=== PATIENT | male | born 1945 | race Two or more races ===

== ENCOUNTER 2024-08-20 12:16 | Inpatient (IN) | payer OTHER ==
[~2024-08-20] VITALS: Ht 170.2 cm; Wt 56.6 kg
--- NOTE | 2024-08-20 12:33 | ED.PDOC ---
History of Present Illness HPI Comments 79-year-old male brought in by EMS presents with a chief complaint of generalized weakness x 2 weeks. Patient was at the [facility] and staff called 911 when they noticed patient had a temperature of 100F and was hypotensive at 100 systolic. Patient has a history of being septic which is why staff called 911. Patient arrives stating that he has no complaints or pain at this time. Patient was given 500mL bolus by EMS and is now at 147/60. Blood sugar was 200 per EMS. No other symptoms or modifying factors present at this time. Chief Complaint: General Weakness Time Seen by MD: 12:18 Reviewed Notes: Medications, Allergies Allergies: Coded Allergies: Lisinopril (Verified Allergy, Unknown, 08/20/24) Information Source: Patient Mode of Arrival: Ambulatory Severity: Moderate Timing: Weeks Duration: Since onset Prehospital treatment: None Past Medical History PAST MEDICAL HISTORY: CVA, DM, HTN Surgical History: Denies all surgeries Family History Family History: Reviewed,noncontributory to illness Social History Smoker: Non-Smoker Alcohol: Denies ETOH Use Drugs: Denies Drug Use Lives In: Home Constitutional: reports: weakness; denies: chills, diaphoresis, fatigue, fever, malaise, sweats, others EENTM: denies: blurred vision, double vision, ear bleeding, ear discharge, ear drainage, ear pain, ear ringing, eye pain, eye redness, hearing loss, mouth pain, mouth swelling, nasal discharge, nose bleeding, nose congestion, nose pain, photophobia, tearing, throat pain, throat swelling, voice changes, others Respiratory: denies: cough, hemoptysis, orthopnea, SOB at rest, shortness of breath, SOB with excertion, stridor, wheezing, others Cardiovascular: denies: chest pain, dizzy spells, diaphoresis, Dyspnea on exertion, edema, irregular heart beat, left arm pain, lightheadedness, palpitations, PND, syncope, others Gastrointestinal: denies: abdomen distended, abdominal pain, blood streaked bowels, constipated, diarrhea, dysphagia, difficulty swallowing, hematemesis, melena, nausea, poor appetite, poor fluid intake, rectal bleeding, rectal pain, vomiting, others Genitourinary: denies: burning, dysuria, flank pain, frequency, hematuria, incontinence, penile discharge, penile sore, pain, testicle pain, testicle swelling, urgency, others Neurological: denies: dizziness, fainting, headache, left sided numbness, left sided weakness, numbness, paresthesia, pre-existing deficit, right sided numbness, right sided weakness, seizure, speech problems, tingling, tremors, weakness, others Musculoskeletal: denies: back pain, gout, joint pain, joint swelling, muscle pain, muscle stiffness, neck pain, others Integumetry: denies: bruises, change in color, change in hair/nails, dryness, laceration, lesions, lumps, rash, wounds, others Allergic/Immunocompromised: denies: Difficulty Healing, Frequent Infections, Hives, Itching, others Hematologic/Lymphatic: denies: anemia, blood clots, easy bleeding, easy bruising, swollen glands, others Endocrine: denies: excessive hunger, excessive sweating, excessive thirst, excessive urination, flushing, intolerance to cold, intolerance to heat, unexplained weight gain, unexplained weight loss, others Psychiatric: denies: anxiety, bipolar disorder, depression, hopeless, panic disorder, schizophrenia, sleepless, suicidal, others All Other Systems: Reviewed and Negative Physical Exam General Appearance: Moderate Distress, Normal HEENT: Normal ENT Inspection, Pharynx Normal, TMs Normal Neck: Full Range of Motion, Non-Tender, Normal, Normal Inspection Respiratory: Chest Non-Tender, Lungs Clear, No Accessory Muscle Use, No Respiratory Distress, Normal Breath Sounds Cardiovascular: No Edema, No JVD, No Murmur, No Gallop, Normal Peripheral Pulses, Regular Rate/Rhythm Breast Exam: Deferred Gastrointestinal: No Organomegaly, No Pulsatile Mass, Normal Bowel Sounds, Soft, Other (G-tube in place) Genitalia: Deferred Pelvic: Deferred Rectal: Deferred Extremities: No calf tenderness, Normal capillary refill, Normal inspection, Normal range of motion, Non-tender, No pedal edema Musculoskeletal : Apperance: Normal Neurologic: Alert, wood cut engraver II-XII nml as Tested, No Motor Deficits, Normal Affect, Normal Mood, No Sensory Deficits Cerebellar Function: NOT DONE Reflexes: NOT DONE Skin: Dry, Normal Color, Warm Peripheral Pulses: 3+ Radial (R), 3+ Radial (L) Lymphatic: No Adenopathy Was a procedure done? Was a procedure done?: No Differential Dx Considerations may include: Anemia Electrolyte imbalance X-Ray, Labs, Meds, VS Vital Signs Date Time Temp Pulse Resp B/P (MAP) Pulse Ox O2 Delivery O2 Flow Rate FiO2 08/20/24 16:36 18 99 Room Air* 0 21 08/20/24 16:13 146/51 08/20/24 16:00 92 25 158/72 (100) 100 08/20/24 16:00 92 25 100 Nasal Cannula* 2 28 08/20/24 14:00 85 18 136/51 (79) 98 08/20/24 12:36 97.5 87 20 142/51 (81) 98 97.5 08/20/24 12:20 98.5 98 16 134/55 (81) 95 Lab Test 08/20/24 15:48 08/20/24 13:38 Range/Units POC Glucose 141 H 70-106 mg/dl White Blood Count 22.2 H 4.4-10.8 10^3/uL Red Blood Count 3.00 L 4.5-5.90 10^6/uL Hemoglobin 9.6 L 13.5-17.5 g/dL Hematocrit 28.6 L 41.0-53.0 % Mean Corpuscular Volume 95.4 80.0-100.0 fL Mean Corpuscular Hemoglobin 32.1 H 28.0-32.0 pg Mean Corpuscular Hemoglobin Concent 33.6 32.0-36.0 g/dL Red Cell Distribution Width 13.6 11.8-14.3 % Platelet Count 309 140-450 10^3/uL Mean Platelet Volume 6.7 L 6.9-10.8 fL Neutrophils (%) (Auto) 90.7 H 37.0-80.0 % Lymphocytes (%) (Auto) 3.5 L 10.0-50.0 % Monocytes (%) (Auto) 5.7 0.0-12.0 % Eosinophils (%) (Auto) 0.0 0.0-7.0 % Basophils (%) (Auto) 0.1 0.0-2.0 % Neutrophils # (Auto) 20.2 H 1.6-8.6 10 ^3/uL Lymphocytes # (Auto) 0.8 0.4-5.4 10 ^3/uL Monocytes # (Auto) 1.3 0-1.3 10 ^3/uL Eosinophils # (Auto) 0 0-0.8 10 ^3/uL Basophils # (Auto) 0 0-0.2 10 ^3/uL Nucleated Red Blood Cells 0.0 % Sodium Level 139 136-145 mmol/L Potassium Level 5.3 H 3.5-5.1 mmol/L Chloride Level 111 H 98-107 mmol/L Carbon Dioxide Level 23 20-31 mmol/L Anion Gap 5 5-15 Blood Urea Nitrogen 36 H 9-23 mg/dL Creatinine 1.52 H 0.700-1.30 mg/dL Glomerular Filtration Rate Calc 46 >90 mL/min BUN/Creatinine Ratio 23.7 H 10.0-20.0 Serum Glucose 186 H 74-106 mg/dL Lactic Acid Level 1.0 0.4-2.0 mmol/L Calcium Level 9.3 8.7-10.4 mg/dL Current Medications Medications (Trade) Dose Ordered Sig/Bryan Route Start Time Stop Time Status Last Admin Metronidazole 100 ml @ 100 mls/hr ONCE ONCE IV 08/20/24 15:15 08/20/24 16:14 DC 08/20/24 16:12 Insulin Human Regular (InsuLIN R) 10 units ONCE ONCE IV 08/20/24 15:15 08/20/24 15:16 DC 08/20/24 15:51 Dextrose 50 ml ONCE ONCE IV 08/20/24 15:15 08/20/24 15:16 DC 08/20/24 15:47 Albuterol (Ventolin Medneb) 20 mg ONCE ONCE NEB 08/20/24 15:15 08/20/24 15:16 DC 08/20/24 16:36 Sodium Bicarbonate 50 ml ONCE ONCE IV 08/20/24 15:15 08/20/24 15:16 DC 08/20/24 15:57 Furosemide (Lasix Injection) 20 mg ONCE ONCE IV 08/20/24 15:15 08/20/24 15:16 DC 08/20/24 16:13 Calcium Gluconate/ Sodium Chloride 50 ml @ 120 mls/hr ONCE ONCE IV 08/20/24 15:15 08/20/24 15:39 DC 08/20/24 15:34 Zirconium Oxide (Lokelma) 10 gm ONCE ONCE PO 08/20/24 15:15 08/20/24 15:16 DC 08/20/24 16:19 Sodium Chloride 1,000 ml @ 1,000 mls/hr Q1H ONCE IV 08/20/24 15:45 08/20/24 16:44 DC 08/20/24 16:17 Sodium Chloride 1,000 ml @ 150 mls/hr Q6H40M ONCE IV 08/20/24 15:45 08/20/24 22:24 08/20/24 17:23 Patient alert. Was at [place] for general exam. Vitals stable. Answering all questions. G-tube in place. Possibly from failure to thrive. Denies any symptoms. He is afebrile in the ER. Reviewed his history. EKG reviewed does not show any acute process. Explained to the patient. [place] approved inpatient admission [id number]. Time of 1ST Reevaluation: 12:48 Reevaluation 1ST: Unchanged Patient Education/Counseling: Diagnosis, Treatment, Prognosis Family Education/Counseling: No Family Present Departure 1 Departure Time of Disposition: 12:35 Impression: Primary Impression: Failure to thrive Qualified Codes: R62.7 - Adult failure to thrive Additional Impressions: Hyperkalemia Sepsis Qualified Codes: A41.9 - Sepsis, unspecified organism Disposition: ADMITTED INPATIENT Admit to: Med Surg Condition: Guarded Critical Care Note Critical Care Time?: Yes (45 min-critical care time only) Stability Stability form required: No Heart Score Heart Score: Heart Score Response (Comments) Value History Slightly Suspicious 0 EKG Normal 0 Age >65 2 Risk Factors >3 or Hx ASHD 2 Troponin Normal limit 0 Total 4 I personally scribed for JONA JONES MD ([email or web address]) on 08/20/24 at 12:33. Electronically submitted by Vincent Vital ([email or web address]). JONA JONES MD Aug 20, 2024 12:33
--- NOTE | 2024-08-20 13:13 | DVH ---
CLINICAL INFORMATION: 79 years old, Male; shortness of breath. TECHNIQUE: Single AP portable chest radiograph was obtained. COMPARISON: None FINDINGS: Lungs: Atelectasis in the lung bases. No focal consolidation. Cardiac: Heart size is within normal limits. Pulmonary vasculature: Unremarkable. Mediastinum/leo: Unremarkable. Bones: No acute osseous abnormality identified. Other: No other significant findings. IMPRESSION: No evidence of acute disease in the chest.
[2024-08-20 14:03] LABS: Basophils # (auto) 0 10 ^3/uL (0-0.2); Basophils % (auto) 0.1 % (0.0-2.0); Eosinophils # (auto) 0 10 ^3/uL (0-0.8); Hematocrit 28.6 % (41.0-53.0); Hemoglobin 9.6 g/dL (13.5-17.5); Lymphocytes # (auto) 0.8 10 ^3/uL (0.4-5.4); Lymphocytes % (auto) 3.5 % (10.0-50.0); Mean Corpuscular Hemoglobin 32.1 pg (28.0-32.0); Mean Corpuscular Hgb Conc. 33.6 g/dL (32.0-36.0); Mean Corpuscular Volume 95.4 fL (80.0-100.0); Monocytes # (auto) 1.3 10 ^3/uL (0-1.3); Monocytes % (auto) 5.7 % (0.0-12.0); Neutrophils # (auto) 20.2 10 ^3/uL (1.6-8.6); Neutrophils % (auto) 90.7 % (37.0-80.0); Platelet Count (auto) 309 10^3/uL (140-450); Red Cell Distribution Width 13.6 % (11.8-14.3); White Blood Cell 22.2 10^3/uL (4.4-10.8)
[2024-08-20 14:14] LABS: Chloride 111 mmol/L (98-107); Potassium 5.3 mmol/L (3.5-5.1); Sodium 139 mmol/L (136-145)
[2024-08-20 14:15] LABS: Anion Gap 5 (5-15); Calcium 9.3 mg/dL (8.7-10.4); Carbon Dioxide 23 mmol/L (20-31)
[2024-08-20 14:20] LABS: BUN/Creatinine Ratio 23.7 (10.0-20.0); Blood Urea Nitrogen 36 mg/dL (9-23); Glucose 186 mg/dL (74-106)
[2024-08-20] MEDS: CALCIUM GLUC 1,000mg/50ml-NS 50 ML IV ONE (15:34)
[2024-08-20] MEDS: DEXTROSE (50%) 50ML SYRG IV ONE (15:47)
[2024-08-20] MEDS: InsuLIN REG 1unit/0.01ml Soln (100units/ml) IV ONE (15:51)
[2024-08-20] MEDS: SODIUM BICARB 8.4% 50Meq/50ml SYR INJ IV ONE (15:57)
[2024-08-20 16:00] VITALS: PULSE 92; RESP 25; O2SAT 100
[2024-08-20] MEDS: SODIUM CHLORIDE 0.9% 1,000 ML IV ONE ×3 (16:00→17:23)
[2024-08-20] MEDS: metroNIDAZOLE 500MG/100ML 100 ML IV ONE (16:12)
[2024-08-20] MEDS: FUROSEMIDE 20 MG/2 ML VIAL IV ONE (16:13)
[2024-08-20] MEDS: SODIUM ZIRCONIUM CYCL 10 GM PAK PO ONE (16:19)
[2024-08-20] MEDS: ALBUTEROL SULF 2.5 MG/0.5ML(0.5%) NEB SOLN NEB ONE (16:36)
--- NOTE | 2024-08-20 16:56 | DVH ---
Exam: CT CT AB PEL WO CON-NO ORAL OR IV History: sepsis Comparison Study: None available at time of dictation. Technique: Multidetector CT of the abdomen and pelvis without contrast. Axial, coronal and sagittal m ultiplanar reformats were performed by the technologist on a separate workstation. Radiation Dose Information: CT Dose: CTDI volume is 5.68 mGy. Dose-length product is 272.92 mGy*cm Findings: Bibasilar atelectasis with mild ground-glass opacities. Borderline cardiomegaly. Liver, spleen, pancreas and adrenal glands unremarkable. Gallbladder is not definitely visualized and may be contracted or surgically absent. Punctate nonobst ructing bilateral renal calculi. Mild right hydronephrosis with no obstructing calculus noted. Mild l eft pelviectasis. Ureters and urinary bladder unremarkable. Prostate is partially visualized measurin g 3.4 x 5 cm with foci of calcifications. A gastrostomy tube is noted in place. Mild wall thickening of the stomach and proximal duodenum. The remainder of the small bowel loops unremarkable. Appendix is unremarkable. Scattered colonic diverticulosis without diverticulitis. Rectal wall thickening. No evidence of intraperitoneal free air or free fluid. No evidence of aortic aneurysm. Moderate to heavy atherosclerotic calcification of the aorta and bila teral iliacs. No significant lymphadenopathy. Small fat containing bilateral inguinal hernias. There is bilateral symmetric soft tissue density wit hin the ventral abdominal subcutaneous fat abutting the skin. Destructive osseous lesions are noted. IMPRESSION: Rectal wall thickening . Correlate for proctitis/neoplasm. Mild wall thickening of the stomach and proximal duodenum which may be due to inadequate distention w ith gastro duodenitis not excluded. Scattered colonic diverticulosis without diverticulitis. Punctate nonobstructing bilateral renal calculi. Mild right hydro nephrosis with no obstructing calculus noted. Mild left pelviectasis.
[2024-08-20 17:28] LABS: Urine Bacteria None Seen /hpf (None Seen)
[2024-08-20 17:53] LABS: Urine Blood Negative /uL (Negative); Urine Clarity Clear (Clear); Urine Color Light-Yellow (Yellow); Urine Protein, UAD Negative (Negative); Urine Specific Gravity 1.007 (1.001-1.035); Urine Urobilinogen Normal (Negative); Urine WBC 2 /hpf (0 - 3); Urine pH 6.5 (5.0-9.0)
[2024-08-20] MEDS: PIPERACILLIN-TAZOB 3.375GM 100 ML IV ONE (18:11)
[2024-08-20 19:30] VITALS: PULSE 97; RESP 18; O2SAT 97
[2024-08-20] MEDS: SODIUM CHLORIDE 0.9% 1,000 ML IV SCH (21:30)
[2024-08-20] MEDS ORDERED: ACETAMINOPHEN 325 MG TAB PO PRN (21:30)
[2024-08-20] MEDS ORDERED: ONDANSETRON HCL 4 MG/2 ML VIAL IV PRN (21:30)
[2024-08-20] MEDS ORDERED: DEXTROSE (50%) 50ML SYRG IV PRN (21:30)
[2024-08-20] MEDS ORDERED: hydrALAZINE HCL 20 MG/ML VL IV PRN (21:30)
[2024-08-20] MEDS ORDERED: HYDROcodone-ACET 5/325MG TAB PO PRN (21:30)
[2024-08-20] MEDS: ACCU-CHEK COMFORT CURVE STRIP VI SCH (22:00)
[2024-08-20] MEDS: InsuLIN REG 1unit/0.01ml Soln (100units/ml) SC SCH (22:00)
--- NOTE | 2024-08-20 23:29 | DVHHP2 ---
History of Present Illness Reason for Visit: Generalized weakness History of Present Illness The patient is a 79-year-old male with past medical history of CVA, DM, and hypertension who presented to [facility] ED with complaint of generalized weakness for proximally 2 weeks' duration. Patient was seen and evaluated in the ED, laboratory data shows elevated WBC 22.2, hemoglobin 9.6, hematocrit 28.6, platelets 309, sodium 139, potassium 5.3 trending down to 3.8, BUN 36, creatinine 1.52, glucose 186, lactic acid 1.0. Abdomen/pelvis CT revealing rectal wall thickening correlate for proctitis/neoplasm; mild wall thickening of the stomach and proximal duodenum which may be due to inadequate distension with gastro duodenitis not excluded; scattered colonic diverticulosis without diverticulitis. Patient was started on IV antibiotic regimen Flagyl, please see medication orders section in the computer. On my assessment, patient denies chest pain, no headache, no dizziness, no shortness of breaths, no nausea, no vomiting, no fever, no chills. Patient was admitted for further ev aluation and medical management. Past Medical History CVA, DM, HTN Past Surgical History Denies all surgeries Family History Reviewed, noncontributory to the management of this case. Past Social History The patient lives at home, denies smoking, alcohol or illicit drugs abuse. Review of Systems Constitutional: Yes: Weakness; No: Fever, Chills, Sweats, Malaise, Other Eyes: No: Pain, Vision change, Conjunctivae inflammation, Eyelid inflammation, Other, Redness ENT: No: Ear pain, Ear discharge, Nose pain, Nose discharge, Nose congestion, Mouth pain, Mouth swelling, Throat pain, Throat swelling, Other Respiratory: No: Cough, Dry, Shortness of breath, SOB with excertion, Wheezing, Hemoptysis, Pleuritic Pain, Sputum, Wheezing, Other Cardiovascular: No: Chest Pain, Palpitations, Orthopnea, Paroxysmal Noc. Dyspnea, Edema, Lt Headedness, Other Gastrointestinal: Abdominal Pain; No: Nausea, Vomiting, Diarrhea, Constipation, Melena, Hematochezia, Other Genitourinary: No Dysuria, No Frequency, No Incontinence, No Hematuria, No Retention, No Other Musculoskeletal: No: other, neck pain, shoulder pain, arm pain, back pain, hand pain, leg pain, foot pain Skin: No: Rash, Lesions, Jaundice, Bruising, Other Neurological: No: Weakness, Numbness, Incoordination, Change in speech, Confusion, Seizures, Other Allergies: Coded Allergies: Lisinopril (Verified Allergy, Unknown, 08/20/24) Medications Current Medications Medications Dose Ordered Sig/Bryan Route Start Time Stop Time Status Last Admin Dose Admin Metronidazole 100 ml @ 100 mls/hr Q8HR@0000,0800,1600 IV 08/21/24 00:00 Aspirin 81 mg DAILY PO 08/21/24 10:00 Diagnostic Test (Pha) 1 strip ACHS 08/20/24 22:00 08/20/24 22:00 1 STRIP Insulin Human Regular HS SC 08/20/24 22:00 08/20/24 22:00 4 UNITS Insulin Human Regular AC SC 08/21/24 07:00 Dextrose 50 ml UD PRN IV 08/20/24 21:30 Sodium Chloride 1,000 ml @ 60 mls/hr [id number] IV 08/20/24 21:30 08/20/24 21:30 60 MLS/HR Acetaminophen/ Hydrocodone Bitart 1 tab Q4HP PRN PO 08/20/24 21:30 Ondansetron HCl 4 mg Q4HP PRN IV 08/20/24 21:30 Docusate Sodium 100 mg BIDPRN PRN PO 08/20/24 21:30 Acetaminophen 650 mg Q6HP PRN PO 08/20/24 21:30 Hydralazine HCl 10 mg Q6HP PRN IV 08/20/24 22:15 Exam Vital Signs Vital Signs Date Time Temp Pulse Resp B/P (MAP) Pulse Ox O2 Delivery O2 Flow Rate FiO2 08/20/24 19:30 98.4 97 16 136/52 (80) 97 98.4 08/20/24 19:30 Room Air* 0 21 General Appearance: Alert, Oriented X3, Cooperative, No acute distress HEENT: Atraumatic, PERRLA, EOMI, Mucous membr. moist/pink Respiratory: Clear to auscultation, Normal air movement Cardiovascular: Regular rate, Normal S1, Normal S2, No murmurs Abdominal: Normal bowel sounds, Soft, No tenderness, No hepatospenomegaly, No masses Extremities: No clubbing, No cyanosis, No edema, Normal pulses, No tenderness/swelling Skin: No rashes, No breakdown, No significant lesion Neuro: Normal speech, Normal tone, Sensation intact, Cranial nerves 3-12 NL, Reflexes 2+, Other (Generalized weakness) Psych/Mental Status: Mental status NL, Mood NL Labs/Xrays Labs Test 08/20/24 22:29 08/20/24 19:22 08/20/24 17:03 08/20/24 13:38 Range/Units POC Glucose 212 H 70-106 mg/dl Potassium Level 3.8 3.5-5.1 mmol/L Urine Color Light-yellow Yellow Urine Clarity Clear Clear Urine pH 6.5 5.0-9.0 Urine Specific [place] 1.007 1.001-1.035 Urine Protein Negative Negative Urine Ketones Negative Negative Urine Blood Negative Negative /uL Urine Nitrite Negative Negative Urine Bilirubin Negative Negative Urine Urobilinogen Normal Negative mg/dL Urine Leukocyte Esterase Negative Negative /uL Urine RBC 1 0 - 3 /hpf Urine WBC 2 0 - 3 /hpf Urine Squamous Epithelial Cells None seen <5 /hpf Urine Bacteria None seen None Seen /hpf Urine Glucose 1+ H Normal mg/dL White Blood Count 22.2 H 4.4-10.8 10^3/uL Red Blood Count 3.00 L 4.5-5.90 10^6/uL Hemoglobin 9.6 L 13.5-17.5 g/dL Hematocrit 28.6 L 41.0-53.0 % Mean Corpuscular Volume 95.4 80.0-100.0 fL Mean Corpuscular Hemoglobin 32.1 H 28.0-32.0 pg Mean Corpuscular Hemoglobin Concent 33.6 32.0-36.0 g/dL Red Cell Distribution Width 13.6 11.8-14.3 % Platelet Count 309 140-450 10^3/uL Mean Platelet Volume 6.7 L 6.9-10.8 fL Neutrophils (%) (Auto) 90.7 H 37.0-80.0 % Lymphocytes (%) (Auto) 3.5 L 10.0-50.0 % Monocytes (%) (Auto) 5.7 0.0-12.0 % Eosinophils (%) (Auto) 0.0 0.0-7.0 % Basophils (%) (Auto) 0.1 0.0-2.0 % Neutrophils # (Auto) 20.2 H 1.6-8.6 10 ^3/uL Lymphocytes # (Auto) 0.8 0.4-5.4 10 ^3/uL Monocytes # (Auto) 1.3 0-1.3 10 ^3/uL Eosinophils # (Auto) 0 0-0.8 10 ^3/uL Basophils # (Auto) 0 0-0.2 10 ^3/uL Nucleated Red Blood Cells 0.0 % Sodium Level 139 136-145 mmol/L Chloride Level 111 H 98-107 mmol/L Carbon Dioxide Level 23 20-31 mmol/L Anion Gap 5 5-15 Blood Urea Nitrogen 36 H 9-23 mg/dL Creatinine 1.52 H 0.700-1.30 mg/dL Glomerular Filtration Rate Calc 46 >90 mL/min BUN/Creatinine Ratio 23.7 H 10.0-20.0 Serum Glucose 186 H 74-106 mg/dL Lactic Acid Level 1.0 0.4-2.0 mmol/L Calcium Level 9.3 8.7-10.4 mg/dL PATIENT: MARCELO RAMEY ACCT: [id number] UNIT: [id number] : 1945 LOC: ER ROOM / BED: / AGE / SEX: 79 / M ADM STATUS: REG ER SERVICE [id number] ORDERING PHYSICIAN: JONA JONES MD PROCEDURE(s): ABPL - CT AB PEL WO CON-NO ORAL OR IV REASON: sepsis ORDER NUMBER(s): [id number], ACCESSION NUMBER(s): [id number] Exam: CT CT AB PEL WO CON-NO ORAL OR IV History: sepsis Comparison Study: None available at time of dictation. Technique: Multidetector CT of the abdomen and pelvis without contrast. Axial, coronal and sagittal multiplanar reformats were performed by the technologist on a separate workstation. Radiation Dose Information: CT Dose: CTDI volume is 5.68 mGy. Dose-length product is 272.92 mGy*cm Findings: Bibasilar atelectasis with mild ground-glass opacities. Borderline cardiomegaly. Liver, spleen, pancreas and adrenal glands unremarkable. Gallbladder is not definitely visualized and may be contracted or surgically absent. Punctate nonobstructing bilateral renal calculi. Mild right hydronephrosis with no obstructing calculus noted. Mild left pelviectasis. Ureters and urinary bladder unremarkable. Prostate is partially visualized measuring 3.4 x 5 cm with foci of calcifications. A gastrostomy tube is noted in place. Mild wall thickening of the stomach and proximal duodenum. The remainder of the small bowel loops unremarkable. Appendix is unremarkable. Scattered colonic diverticulosis without diverticulitis. Rectal wall thickening. No evidence of intraperitoneal free air or free fluid. No evidence of aortic aneurysm. Moderate to heavy atherosclerotic calcification of the aorta and bilateral iliacs. No significant lymphadenopathy. Small fat containing bilateral inguinal hernias. There is bilateral symmetric soft tissue density within the ventral abdominal subcutaneous fat abutting the skin. Destructive osseous lesions are noted. IMPRESSION: Rectal wall thickening. Correlate for proctitis/neoplasm. Mild wall thickening of the stomach and proximal duodenum which may be due to inadequate distention with gastro duodenitis not excluded. Scattered colonic diverticulosis without diverticulitis. Punctate nonobstructing bilateral renal calculi. Mild right hydro nephrosis with no obstructing calculus noted. Mild left pelviectasis. ORDERING PHYSICIAN: JONA JONES MD PROCEDURE(s): CXRP - CHEST PORTABLE REASON: SOB ORDER NUMBER(s): [id number], ACCESSION NUMBER(s): [id number] CLINICAL INFORMATION: 79 years old, Male; shortness of breath. TECHNIQUE: Single AP portable chest radiograph was obtained. COMPARISON: None FINDINGS: Lungs: Atelectasis in the lung bases. No focal consolidation. Cardiac: Heart size is within normal limits. Pulmonary vasculature: Unremarkable. Mediastinum/leo: Unremarkable. Bones: No acute osseous abnormality identified. Other: No other significant findings. IMPRESSION: No evidence of acute disease in the chest. Assessment/Plan Assessment/Plan Acute abdominal pain Hyperkalemia Proctitis Acute renal injury Leukocytosis, unspecified Generalized weakness Adult failure to thrive Plan 1. Admit to telemetry unit 2. Breathing treatment 3. Pain control management 4. IV antibiotic management 5. Management of fluids and electrolytes 6. Consultation for hospitalist 7. Diagnostic test abdomen/pelvis CT 8. DVT prophylaxis on SCDs 9. Repeat labs CBC, CMP in a.m. 10. Home medication reviewed and reconciled 11. Continue with current medical management 12. Treatment plan discussed with patient and RN. Patient verbalized unde rstanding. Plan discussed with: Patient, Other (RN) My Orders Orders - YUNIOR CHOW DNP Procedure Category Date Status Time Consistent DIET 08/21/24 Transmitted Carb(Ccho)Diabetes Breakfast Aspirin Tablet PHA 08/21/24 In Process 10:00 Glucose Blood PHA 08/20/24 In Process (Accu-Chek Comfort 22:00 Insulin R (Human) PHA 08/20/24 In Process (Insulin R) 22:00 Insulin R (Human) PHA 08/21/24 In Process (Insulin R) 07:00 Dextrose 50% Syringe PHA 08/20/24 In Process 21:30 Allergies JESSICA 08/20/24 In Process 21:22 Code Status CODE 08/20/24 Transmitted 21:22 Sodium Chloride 0.9% PHA 08/20/24 In Process 21:30 Oxygen Per Hour RT 08/20/24 Transmitted 21:22 Hydrocodone-Acet PHA 08/20/24 In Process 5/325mg Tab ([place] 21:30 Ondansetron Hcl PHA 08/20/24 In Process (Zofran) 21:30 Docusate Sodium PHA 08/20/24 In Process Capsule (Colace 21:30 Fall Risk Precautions JESSICA 08/20/[address] 21:22 Complete Blood Count LAB 08/21/24 Verified 04:00 Comprehensive LAB 08/21/24 Verified Metabolic Panel 04:00 Condition: Serious JESSICA 08/20/24 In Process 21:22 Acetaminophen Tablet PHA 08/20/24 In Process (Tylenol Tablet) 21:30 Sequential JESSICA 08/20/24 In Process Compression Device Hydralazine Injection PHA 08/20/24 In Process (Apresoline Inject 22:15 Metronidazole PHA 08/21/24 In Process 500mg/100ml (Flagyl 00:00 Problem List: (1) Generalized weakness (2) Proctitis (3) Leukocytosis, unspecified (4) Acute abdominal pain (5) Hyperkalemia (6) Acute renal injury (7) Adult failure to thrive Date of Service: Aug 20, 2024 Billing Provider: YUNIOR CHOW DNP Common Visit Codes: [id number] INP/OBS CARE (HIGH) YUNIOR CHOW DNP Aug 20, 2024 23:29
[2024-08-20] MEDS ORDERED: NITROGLYCERIN 0.4 MG SL TAB SL PRN (23:30)
[2024-08-20] MEDS ORDERED: MORPHINE SULFATE INJ 2 MG/ml SYRG IV PRN (23:30)
[2024-08-21] VITALS (9 sets, daily range): BP systolic 118–184; BP diastolic 44–70; PULSE 70–83; RESP 16–21; TEMP 97.7–98.4; O2SAT 97–100
[2024-08-21] MEDS: metroNIDAZOLE 500MG/100ML 100 ML IV SCH (00:17)
[2024-08-21] MEDS: InsuLIN REG 1unit/0.01ml Soln (100units/ml) SC SCH (06:28)
[2024-08-21 07:29] LABS: Basophils # (auto) 0 10 ^3/uL (0-0.2); Basophils % (auto) 0.2 % (0.0-2.0); Eosinophils # (auto) 0.1 10 ^3/uL (0-0.8); Eosinophils % (auto) 0.7 % (0.0-7.0); Hemoglobin 8.6 g/dL (13.5-17.5); Lymphocytes # (auto) 1.3 10 ^3/uL (0.4-5.4); Lymphocytes % (auto) 9.2 % (10.0-50.0); Mean Corpuscular Hemoglobin 32.3 pg (28.0-32.0); Mean Corpuscular Hgb Conc. 34.3 g/dL (32.0-36.0); Mean Corpuscular Volume 94.3 fL (80.0-100.0); Monocytes # (auto) 0.9 10 ^3/uL (0-1.3); Monocytes % (auto) 6.6 % (0.0-12.0); Neutrophils # (auto) 11.4 10 ^3/uL (1.6-8.6); Neutrophils % (auto) 83.3 % (37.0-80.0); Platelet Count (auto) 278 10^3/uL (140-450); Red Blood Cells 2.66 10^6/uL (4.5-5.90); Red Cell Distribution Width 13.6 % (11.8-14.3); White Blood Cell 13.7 10^3/uL (4.4-10.8)
[2024-08-21 07:50] LABS: Alanine Aminotransferase 121 U/L (7-40); Albumin 3.5 g/dL (3.2-4.8); Anion Gap 7 (5-15); Aspartate Aminotransferase 71 U/L (13-40); BUN/Creatinine Ratio 19.1 (10.0-20.0); Bilirubin, Total 1.2 mg/dL (0.2-1.0); Blood Urea Nitrogen 29 mg/dL (9-23); Calcium 8.8 mg/dL (8.7-10.4); Carbon Dioxide 25 mmol/L (20-31); Chloride 110 mmol/L (98-107); Glucose 129 mg/dL (74-106); Potassium 3.7 mmol/L (3.5-5.1); Sodium 142 mmol/L (136-145); Total Protein 6.1 g/dL (5.7-8.2)
[2024-08-21 07:57] LABS: Alkaline Phosphatase 973 U/L (46-116)
[2024-08-21] MEDS: ASPirin 81 mg TAB PO SCH (09:22)
--- NOTE | 2024-08-21 12:07 | DVHPN2 ---
Reviewed: Care Plan, H&P, Labs, Medications, Previous Orders, Radiology Changes from previous H/P or p: No Changes General: Per HPI Eyes: No Pain, No Vision change, No Conjunctivae inflammation, No Eyelid inflammation, No Other, No Redness ENT: No Ear pain, No Ear discharge, No Nose pain, No Nose discharge, No Nose congestion, No Mouth pain, No Mouth swelling, No Throat pain, No Throat swelling, No Other Cardiovascular: No Chest Pain, No Palpitations, No Orthopnea, No Paroxysmal Noc. Dyspnea, No Edema, No Lt Headedness, No Other Respiratory: No Cough, No Dry, No Shortness of breath, No SOB with excertion, No Wheezing, No Hemoptysis, No Pleuritic Pain, No Sputum, No Other Gastrointestinal: No Nausea, No Vomiting; Abdominal Pain; No Diarrhea, No Constipation, No Melena, No Hematochezia, No Other Genitourinary: No Dysuria, No Frequency, No Incontinence, No Hematuria, No Retention, No Other Musculoskeletal: No other, No neck pain, No shoulder pain, No arm pain, No back pain, No hand pain, No leg pain, No foot pain Skin: No Rash, No Lesions, No Jaundice, No Bruising, No Other Objective Vitals Vital Signs Date Time Temp Pulse Resp B/P (MAP) Pulse Ox O2 Delivery O2 Flow Rate FiO2 08/21/24 08:38 97.9 81 16 125/44 (71) 97 97.9 08/21/24 01:25 Room Air* 0 21 Intake/Output Intake and Output 08/21/24 07:00 Intake Total 1820 ml Output Total 700 ml Balance 1120 ml Intake IV Total 1820 ml Output Urine Total 700 ml # Voids 3 Medications Current Medications Medications Dose Ordered Sig/Bryan Route Start Time Stop Time Status Last Admin Dose Admin Metronidazole 100 ml @ 100 mls/hr Q8HR@0000,0800,1600 IV 08/21/24 00:00 08/21/24 09:22 100 MLS/HR Aspirin 81 mg DAILY PO 08/21/24 10:00 08/21/24 09:22 81 MG Diagnostic Test (Pha) 1 strip ACHS 08/20/24 22:00 08/21/24 11:40 1 STRIP Insulin Human Regular HS SC 08/20/24 22:00 08/20/24 22:00 4 UNITS Insulin Human Regular AC SC 08/21/24 07:00 Dextrose 50 ml UD PRN IV 08/20/24 21:30 Sodium Chloride 1,000 ml @ 60 mls/hr [id number] IV 08/20/24 21:30 08/20/24 21:30 60 MLS/HR Acetaminophen/ Hydrocodone Bitart 1 tab Q4HP PRN PO 08/20/24 21:30 Ondansetron HCl 4 mg Q4HP PRN IV 08/20/24 21:30 Docusate Sodium 100 mg BIDPRN PRN PO 08/20/24 21:30 Acetaminophen 650 mg Q6HP PRN PO 08/20/24 21:30 Hydralazine HCl 10 mg Q6HP PRN IV 08/20/24 22:15 Nitroglycerin 0.4 mg Q5MINP PRN SL 08/20/24 23:30 Morphine Sulfate 2 mg Q30M PRN IV 08/20/24 23:30 Laboratory Results Laboratory Tests 08/21/24 06:33 Chemistry Test 08/20/24 13:38 08/21/24 06:33 Calcium Level 9.3 mg/dL (8.7-10.4) 8.8 mg/dL (8.7-10.4) Albumin 3.5 g/dL (3.2-4.8) Total Protein 6.1 g/dL (5.7-8.2) LFT Test 08/21/24 06:33 Alanine Aminotransferase (ALT) 121 U/L (7-40) H Alkaline Phosphatase 973 U/L (46-116) H Aspartate Amino Transferase (AST) 71 U/L (13-40) H Total Bilirubin 1.2 mg/dL (0.2-1.0) H Urinalysis Test 08/20/24 17:03 Urine Color Light-yellow (Yellow) Urine Clarity Clear (Clear) Urine pH 6.5 (5.0-9.0) Urine Specific [place] 1.007 (1.001-1.035) Urine Protein Negative (Negative) Urine Ketones Negative (Negative) Urine Blood Negative /uL (Negative) Urine Nitrite Negative (Negative) Urine Bilirubin Negative (Negative) Urine Urobilinogen Normal mg/dL (Negative) Urine Leukocyte Esterase Negative /uL (Negative) Urine RBC 1 /hpf (0 - 3) Urine WBC 2 /hpf (0 - 3) Urine Squamous Epithelial Cells None seen /hpf (<5) Urine Bacteria None seen /hpf (None Seen) Urine Glucose 1+ mg/dL (Normal) H Assessment/Plan Assessment/Plan The patient is a 79-year-old male with past medical history of CVA, DM, and hypertension who presented to [facility] ED with complaint of generalized weakness for proximally 2 weeks' duration. Patient was seen and evaluated in the ED, laboratory data shows elevated WBC 22.2, hemoglobin 9.6, hematocrit 28.6, platelets 309, sodium 139, potassium 5.3 trending down to 3.8, BUN 36, creatinine 1.52, glucose 186, lactic acid 1.0. Abdomen/pelvis CT revealing rectal wall thickening correlate for proctitis/neoplasm; mild wall thickening of the stomach and proximal duodenum which may be due to inadequate distension with gastro duodenitis not excluded; scattered colonic diverticulosis without diverticulitis. Patient was started on IV antibiotic regimen Flagyl, please see medication orders section in the computer. On my assessment, patient denies chest pain, no headache, no dizziness, no shortness of breaths, no nausea, no vomiting, no fever, no chills. Patient was admitted for further evaluation and medical management. Acute abdominal pain Hyperkalemia Proctitis JOSE, mild Leukocytosis, unspecified Generalized weakness Adult failure to thrive 08/21/2024 continue with IV aBx for proctitis consult to Gen Surg for PEG tube removal time: >35 minutes Plan discussed with: Patient Date of Service: Aug 21, 2024 Billing Provider: OZZY MILES DO Common Visit Codes: [id number] INP/OBS CARE(HIGH) OZZY MILES DO Aug 21, 2024 12:07
--- NOTE | 2024-08-21 16:49 | DVHINCON2 ---
Date of service: Aug 21, 2024 History of Present Illness 9-year-old male with a history of hypertension, diabetes and CVA admitted secondary to failure to thrive with leukocytosis. Clinically patient is improving however there was concern for possible biliary drain therefore surgical consultation was requested. Patient currently denies any abdominal pain and is able to tolerate diet well. Past Medical History HTN. Diabetes. CVA. Past Surgical History Peg placement Family History: Diabetes mellitus G8 MOTHER G8 FATHER Family History Noncontributory Social History Denies any alcohol, tobacco, IV drug use Allergies: Coded Allergies: Lisinopril (Verified Allergy, Unknown, 08/20/24) Home Meds No Active Prescriptions or Reported Meds Current Medications Current Medications Medications (Trade) Dose Ordered Sig/Bryan Route PRN Reason Start Time Stop Time Status Last Admin Metronidazole 100 ml @ 100 mls/hr Q8HR@0000,0800,1600 IV 08/21/24 00:00 08/21/24 09:22 Hydralazine HCl (Apresoline Injection) 10 mg Q6HP PRN IV SBP>150 08/20/24 21:30 08/20/24 22:06 DC Aspirin 81 mg DAILY PO 08/21/24 10:00 08/21/24 09:22 Diagnostic Test (Pha) (Accu-Chek Comfort Curve T) 1 strip ACHS 08/20/24 22:00 08/21/24 11:40 Insulin Human Regular (InsuLIN R) HS SC 08/20/24 22:00 08/20/24 22:00 Insulin Human Regular (InsuLIN R) AC SC 08/21/24 07:00 08/21/24 12:10 Dextrose 50 ml UD PRN IV Blood Sugar LESS THAN 60 08/20/24 21:30 Sodium Chloride 1,000 ml @ 60 mls/hr [id number] IV 08/20/24 21:30 08/21/24 14:16 Acetaminophen/ Hydrocodone Bitart ([place] 5/325MG Tab) 1 tab Q4HP PRN PO MODERATE PAIN (4-6 PAIN SCALE) 08/20/24 21:30 Ondansetron HCl (Zofran) 4 mg Q4HP PRN IV NAUSEA / VOMITING 08/20/24 21:30 Docusate Sodium (Colace Capsule) 100 mg BIDPRN PRN PO FOR CONSTIPATION 08/20/24 21:30 Acetaminophen (Tylenol Tablet) 650 mg Q6HP PRN PO PAIN SCALE 1-3 OR TEMP>100.4 08/20/24 21:30 Hydralazine HCl (Apresoline Injection) 10 mg Q6HP PRN IV SBP>150 08/20/24 22:15 Nitroglycerin (Ntrostat Sublingual) 0.4 mg Q5MINP PRN SL FOR CHEST PAIN 08/20/24 23:30 Morphine Sulfate 2 mg Q30M PRN IV FOR CHEST PAIN 08/20/24 23:30 Vital Signs Vital Signs Date Time Temp Pulse Resp B/P (MAP) Pulse Ox O2 Delivery O2 Flow Rate FiO2 08/21/24 13:00 97.7 72 21 155/54 (87) 97 97.7 08/21/24 08:00 Room Air* 0 21 Physical Exam GEN: Age-appropriate male in no acute distress. Alert. HEENT: Normocephalic atraumatic. Moist mucous membranes. Anicteric sclerae. CV: RRR Respiratory: Coarse breath sounds ABD: There is a PEG tube intact. Abdomen is otherwise soft and nontender and nondistended. Labs/Diagnostic Data Labs Test 08/21/24 11:39 08/21/24 06:33 08/20/24 17:03 08/20/24 13:38 Range/Units POC Glucose 170 H 70-106 mg/dl White Blood Count 13.7 #H 4.4-10.8 10^3/uL Red Blood Count 2.66 L 4.5-5.90 10^6/uL Hemoglobin 8.6 L 13.5-17.5 g/dL Hematocrit 25.0 #L 41.0-53.0 % Mean Corpuscular Volume 94.3 80.0-100.0 fL Mean Corpuscular Hemoglobin 32.3 H 28.0-32.0 pg Mean Corpuscular Hemoglobin Concent 34.3 32.0-36.0 g/dL Red Cell Distribution Width 13.6 11.8-14.3 % Platelet Count 278 140-450 10^3/uL Mean Platelet Volume 6.8 L 6.9-10.8 fL Neutrophils (%) (Auto) 83.3 H 37.0-80.0 % Lymphocytes (%) (Auto) 9.2 L 10.0-50.0 % Monocytes (%) (Auto) 6.6 0.0-12.0 % Eosinophils (%) (Auto) 0.7 0.0-7.0 % Basophils (%) (Auto) 0.2 0.0-2.0 % Neutrophils # (Auto) 11.4 H 1.6-8.6 10 ^3/uL Lymphocytes # (Auto) 1.3 0.4-5.4 10 ^3/uL Monocytes # (Auto) 0.9 0-1.3 10 ^3/uL Eosinophils # (Auto) 0.1 0-0.8 10 ^3/uL Basophils # (Auto) 0 0-0.2 10 ^3/uL Nucleated Red Blood Cells 0.0 % Sodium Level 142 136-145 mmol/L Potassium Level 3.7 3.5-5.1 mmol/L Chloride Level 110 H 98-107 mmol/L Carbon Dioxide Level 25 20-31 mmol/L Anion Gap 7 5-15 Blood Urea Nitrogen 29 H 9-23 mg/dL Creatinine 1.52 H 0.700-1.30 mg/dL Glomerular Filtration Rate Calc 46 >90 mL/min BUN/Creatinine Ratio 19.1 10.0-20.0 Serum Glucose 129 H 74-106 mg/dL Calcium Level 8.8 8.7-10.4 mg/dL Total Bilirubin 1.2 H 0.2-1.0 mg/dL Aspartate Amino Transferase (AST) 71 H 13-40 U/L Alanine Aminotransferase (ALT) 121 H 7-40 U/L Alkaline Phosphatase 973 H 46-116 U/L Total Protein 6.1 5.7-8.2 g/dL Albumin 3.5 3.2-4.8 g/dL Urine Color Light-yellow Yellow Urine Clarity Clear Clear Urine pH 6.5 5.0-9.0 Urine Specific [place] 1.007 1.001-1.035 Urine Protein Negative Negative Urine Ketones Negative Negative Urine Blood Negative Negative /uL Urine Nitrite Negative Negative Urine Bilirubin Negative Negative Urine Urobilinogen Normal Negative mg/dL Urine Leukocyte Esterase Negative Negative /uL Urine RBC 1 0 - 3 /hpf Urine WBC 2 0 - 3 /hpf Urine Squamous Epithelial Cells None seen <5 /hpf Urine Bacteria None seen None Seen /hpf Urine Glucose 1+ H Normal mg/dL Lactic Acid Level 1.0 0.4-2.0 mmol/L Microbiology Date/Time Source Procedure Growth Status 08/20/24 16:00 Blood Blood Culture - Preliminary NO GROWTH AFTER 24 HOURS OF INCUBATION. Resulted Assessment 1. No obvious biliary drain. Patient does have a PEG tube. Plan/Recommendation 1. No acute surgical issues at this time. Surgery signing off. Plan discussed with: Patient CHATA LYN MD Aug 21, 2024 16:49
[2024-08-21] MEDS: DOCUSATE SOD 100 MG CAP PO PRN (17:03)
[2024-08-21] MEDS: hydrALAZINE HCL 20 MG/ML VL IV PRN (21:11)
[2024-08-22] VITALS (8 sets, daily range): BP systolic 128–173; BP diastolic 55–86; PULSE 68–88; RESP 16–19; TEMP 97.6–98.6; O2SAT 17–99
--- NOTE | 2024-08-22 17:48 | DVHINCON2 ---
Date of service: Aug 22, 2024 Referring Physician Rivera Dover Reason for Consultation Possible PEG tube removal History of Present Illness The patient is a 79-year-old male with past medical history of CVA, DM, and hypertension who presented to [facility] ED with complaint of generalized weakness for proximally 2 weeks' duration. I was asked to consult on the patient as the patient is apparently tolerating a diet. He has a previously placed PEG tube and there is consideration for removal of the PEG tube. Past Medical History HTN. Diabetes. CVA. Past Surgical History Past Surgical History Peg placement Family History: Diabetes mellitus G8 MOTHER G8 FATHER Allergies: Coded Allergies: Lisinopril (Verified Allergy, Unknown, 08/20/24) Home Meds No Active Prescriptions or Reported Meds Vital Signs Vital Signs Date Time Temp Pulse Resp B/P (MAP) Pulse Ox O2 Delivery O2 Flow Rate FiO2 08/22/24 17:00 97.7 82 16 143/55 (84) 98 97.7 08/22/24 07:40 Room Air* 0 21 Physical Exam GEN: Age-appropriate male in no acute distress. Alert. HEENT: Normocephalic atraumatic. Moist mucous membranes. Anicteric sclerae. CV: RRR Respiratory: Coarse breath sounds ABD: There is a PEG tube intact. Abdomen is otherwise soft and nontender and nondistended. Labs/Diagnostic Data Labs Test 08/22/24 16:39 08/21/24 06:33 08/20/24 17:03 08/20/24 13:38 Range/Units POC Glucose 173 H 70-106 mg/dl White Blood Count 13.7 #H 4.4-10.8 10^3/uL Red Blood Count 2.66 L 4.5-5.90 10^6/uL Hemoglobin 8.6 L 13.5-17.5 g/dL Hematocrit 25.0 #L 41.0-53.0 % Mean Corpuscular Volume 94.3 80.0-100.0 fL Mean Corpuscular Hemoglobin 32.3 H 28.0-32.0 pg Mean Corpuscular Hemoglobin Concent 34.3 32.0-36.0 g/dL Red Cell Distribution Width 13.6 11.8-14.3 % Platelet Count 278 140-450 10^3/uL Mean Platelet Volume 6.8 L 6.9-10.8 fL Neutrophils (%) (Auto) 83.3 H 37.0-80.0 % Lymphocytes (%) (Auto) 9.2 L 10.0-50.0 % Monocytes (%) (Auto) 6.6 0.0-12.0 % Eosinophils (%) (Auto) 0.7 0.0-7.0 % Basophils (%) (Auto) 0.2 0.0-2.0 % Neutrophils # (Auto) 11.4 H 1.6-8.6 10 ^3/uL Lymphocytes # (Auto) 1.3 0.4-5.4 10 ^3/uL Monocytes # (Auto) 0.9 0-1.3 10 ^3/uL Eosinophils # (Auto) 0.1 0-0.8 10 ^3/uL Basophils # (Auto) 0 0-0.2 10 ^3/uL Nucleated Red Blood Cells 0.0 % Sodium Level 142 136-145 mmol/L Potassium Level 3.7 3.5-5.1 mmol/L Chloride Level 110 H 98-107 mmol/L Carbon Dioxide Level 25 20-31 mmol/L Anion Gap 7 5-15 Blood Urea Nitrogen 29 H 9-23 mg/dL Creatinine 1.52 H 0.700-1.30 mg/dL Glomerular Filtration Rate Calc 46 >90 mL/min BUN/Creatinine Ratio 19.1 10.0-20.0 Serum Glucose 129 H 74-106 mg/dL Calcium Level 8.8 8.7-10.4 mg/dL Total Bilirubin 1.2 H 0.2-1.0 mg/dL Aspartate Amino Transferase (AST) 71 H 13-40 U/L Alanine Aminotransferase (ALT) 121 H 7-40 U/L Alkaline Phosphatase 973 H 46-116 U/L Total Protein 6.1 5.7-8.2 g/dL Albumin 3.5 3.2-4.8 g/dL Urine Color Light-yellow Yellow Urine Clarity Clear Clear Urine pH 6.5 5.0-9.0 Urine Specific [place] 1.007 1.001-1.035 Urine Protein Negative Negative Urine Ketones Negative Negative Urine Blood Negative Negative /uL Urine Nitrite Negative Negative Urine Bilirubin Negative Negative Urine Urobilinogen Normal Negative mg/dL Urine Leukocyte Esterase Negative Negative /uL Urine RBC 1 0 - 3 /hpf Urine WBC 2 0 - 3 /hpf Urine Squamous Epithelial Cells None seen <5 /hpf Urine Bacteria None seen None Seen /hpf Urine Glucose 1+ H Normal mg/dL Lactic Acid Level 1.0 0.4-2.0 mmol/L Microbiology Date/Time Source Procedure Growth Status 08/20/24 16:00 Blood Blood Culture - Preliminary NO GROWTH AFTER 48 HOURS OF IN[address]ATION. Resulted CT SCAN ABD PELVIS IMPRESSION: Rectal wall thickening . Correlate for proctitis/neoplasm. Mild wall thickening of the stomach and proximal duodenum which may be due to inadequate distention with gastro duodenitis not excluded. Scattered colonic diverticulosis without diverticulitis. Punctate nonobstructing bilateral renal calculi. Mild right hydro nephrosis with no obstructing calculus noted. Mild left pelviectasis. Problems(with codes): (1) Acute renal injury (2) Leukocytosis, unspecified (3) Adult failure to thrive (4) Generalized weakness (5) Acute abdominal pain Plan/Recommendation Plan Advance diet as tolerated Patient is on IV antibiotics possibly for suspected pneumonia I will evaluate this patient and if he continues to eat we will arrange an endoscopy for peg tube removal If the patient is discharged this can also be arranged as an outpatient Plan discussed with: Other (Nurse) KASSANDRA MCKINNON MD Aug 22, 2024 17:48
[2024-08-22] MEDS: traZODone HCL 50 MG TAB PO SCH (21:22)
[2024-08-23] VITALS (8 sets, daily range): BP systolic 121–165; BP diastolic 46–78; PULSE 76–94; RESP 18–20; TEMP 96.6–98.6; O2SAT 98–100
--- NOTE | 2024-08-23 12:37 | DVHPN2 ---
Progress Note - Dictate Date Seen: Aug 23, 2024 Medical Necessity Reason Pt with a Central, PICC or Fol: No Subjective Patient is lying comfortably in bed There was no nausea vomiting He is tolerating diet Patient states he does not use his PEG tube anymore vital signs Vital Sign Date Time Temp Pulse Resp B/P (MAP) Pulse Ox O2 Delivery O2 Flow Rate FiO2 08/23/24 09:26 164/51 08/23/24 09:00 97.9 88 20 98 97.9 08/23/24 07:36 Room Air* 0 21 Total Intake and Output 08/22/24 08/22/24 08/23/24 14:59 22:59 06:59 Intake Total 100 ml 1750 ml Output Total 1300 ml 300 ml Balance 100 ml 450 ml -300 ml medications Current Medications Medications Dose Ordered Sig/Bryan Route Start Time Stop Time Status Last Admin Dose Admin Metronidazole 100 ml @ 100 mls/hr Q8HR@0000,0800,1600 IV 08/21/24 00:00 08/23/24 09:25 100 MLS/HR Aspirin 81 mg DAILY PO 08/21/24 10:00 08/23/24 09:25 81 MG Diagnostic Test (Pha) 1 strip ACHS 08/20/24 22:00 08/23/24 11:00 1 STRIP Insulin Human Regular HS SC 08/20/24 22:00 08/20/24 22:00 4 UNITS Insulin Human Regular AC SC 08/21/24 07:00 08/23/24 11:27 2 UNITS Dextrose 50 ml UD PRN IV 08/20/24 21:30 Sodium Chloride 1,000 ml @ 60 mls/hr [id number] IV 08/20/24 21:30 08/22/24 22:13 60 MLS/HR Acetaminophen/ Hydrocodone Bitart 1 tab Q4HP PRN PO 08/20/24 21:30 Ondansetron HCl 4 mg Q4HP PRN IV 08/20/24 21:30 Docusate Sodium 100 mg BIDPRN PRN PO 08/20/24 21:30 08/22/24 14:36 100 MG Acetaminophen 650 mg Q6HP PRN PO 08/20/24 21:30 Hydralazine HCl 10 mg Q6HP PRN IV 08/20/24 22:15 08/23/24 09:26 10 MG Nitroglycerin 0.4 mg Q5MINP PRN SL 08/20/24 23:30 Morphine Sulfate 2 mg Q30M PRN IV 08/20/24 23:30 Trazodone HCl 50 mg DAILY@2100 PO 08/22/24 21:00 08/22/24 21:22 50 MG objective GEN: Age-appropriate male in no acute distress. Alert. HEENT: Normocephalic atraumatic. Moist mucous membranes. Anicteric sclerae. CV: RRR Respiratory: Coarse breath sounds ABD: There is a PEG tube intact. Abdomen is otherwise soft and nontender and nondistended. laboratory and microbiology Laboratory Tests 08/21/24 06:33 Test 08/21/24 06:33 Range/Units Serum Glucose 129 H 74-106 mg/dL Problems(with codes): (1) Adult failure to thrive (2) Generalized weakness (3) Acute abdominal pain Prognosis Plan NPO after midnight I will arrange endoscopy with removal of PEG tube on 08/24/24 Plan discussed with: Patient KASSANDRA MCKINNON MD Aug 23, 2024 12:37
--- NOTE | 2024-08-23 13:08 | DVHPN2 ---
Reviewed: Care Plan, H&P, Labs, Medications, Previous Orders, Radiology Changes from previous H/P or p: No Changes General: Per HPI Eyes: No Pain, No Vision change, No Conjunctivae inflammation, No Eyelid inflammation, No Other, No Redness ENT: No Ear pain, No Ear discharge, No Nose pain, No Nose discharge, No Nose congestion, No Mouth pain, No Mouth swelling, No Throat pain, No Throat swelling, No Other Cardiovascular: No Chest Pain, No Palpitations, No Orthopnea, No Paroxysmal Noc. Dyspnea, No Edema, No Lt Headedness, No Other Respiratory: No Cough, No Dry, No Shortness of breath, No SOB with excertion, No Wheezing, No Hemoptysis, No Pleuritic Pain, No Sputum, No Other Gastrointestinal: No Nausea, No Vomiting; Abdominal Pain; No Diarrhea, No Constipation, No Melena, No Hematochezia, No Other Genitourinary: No Dysuria, No Frequency, No Incontinence, No Hematuria, No Retention, No Other Musculoskeletal: No other, No neck pain, No shoulder pain, No arm pain, No back pain, No hand pain, No leg pain, No foot pain Skin: No Rash, No Lesions, No Jaundice, No Bruising, No Other Objective Vitals Vital Signs Date Time Temp Pulse Resp B/P (MAP) Pulse Ox O2 Delivery O2 Flow Rate FiO2 08/23/24 12:54 97.9 88 20 164/51 (88) 98 97.9 08/23/24 07:36 Room Air* 0 21 Intake/Output Intake and Output 08/23/24 07:00 Intake Total 1850 ml Output Total 1600 ml Balance 250 ml Intake Oral 1650 ml IV Total 200 ml Output Urine Total 1600 ml General Appearance: Alert, Oriented X3, Cooperative HEENT: Atraumatic Lungs: Clear to auscultation Cardiovascular: Regular rate, Normal S1, Normal S2 Abdomen: Normal bowel sounds Medications Current Medications Medications Dose Ordered Sig/Bryan Route Start Time Stop Time Status Last Admin Dose Admin Metronidazole 100 ml @ 100 mls/hr Q8HR@0000,0800,1600 IV 08/21/24 00:00 08/23/24 09:25 100 MLS/HR Aspirin 81 mg DAILY PO 08/21/24 10:00 08/23/24 09:25 81 MG Diagnostic Test (Pha) 1 strip ACHS 08/20/24 22:00 08/23/24 11:00 1 STRIP Insulin Human Regular HS SC 08/20/24 22:00 08/20/24 22:00 4 UNITS Insulin Human Regular AC SC 08/21/24 07:00 08/23/24 11:27 2 UNITS Dextrose 50 ml UD PRN IV 08/20/24 21:30 Sodium Chloride 1,000 ml @ 60 mls/hr [id number] IV 08/20/24 21:30 08/22/24 22:13 60 MLS/HR Acetaminophen/ Hydrocodone Bitart 1 tab Q4HP PRN PO 08/20/24 21:30 Ondansetron HCl 4 mg Q4HP PRN IV 08/20/24 21:30 Docusate Sodium 100 mg BIDPRN PRN PO 08/20/24 21:30 08/22/24 14:36 100 MG Acetaminophen 650 mg Q6HP PRN PO 08/20/24 21:30 Hydralazine HCl 10 mg Q6HP PRN IV 08/20/24 22:15 08/23/24 09:26 10 MG Nitroglycerin 0.4 mg Q5MINP PRN SL 08/20/24 23:30 Morphine Sulfate 2 mg Q30M PRN IV 08/20/24 23:30 Trazodone HCl 50 mg DAILY@2100 PO 08/22/24 21:00 08/22/24 21:22 50 MG Laboratory Results Laboratory Tests 08/21/24 06:33 Urinalysis Test 08/20/24 17:03 Urine Color Light-yellow (Yellow) Urine Clarity Clear (Clear) Urine pH 6.5 (5.0-9.0) Urine Specific [place] 1.007 (1.001-1.035) Urine Protein Negative (Negative) Urine Ketones Negative (Negative) Urine Blood Negative /uL (Negative) Urine Nitrite Negative (Negative) Urine Bilirubin Negative (Negative) Urine Urobilinogen Normal mg/dL (Negative) Urine Leukocyte Esterase Negative /uL (Negative) Urine RBC 1 /hpf (0 - 3) Urine WBC 2 /hpf (0 - 3) Urine Squamous Epithelial Cells None seen /hpf (<5) Urine Bacteria None seen /hpf (None Seen) Urine Glucose 1+ mg/dL (Normal) H Microbiology Microbiology Date/Time Source Procedure Growth Status 08/20/24 16:00 Blood Blood Culture - Preliminary NO GROWTH AFTER 48 HOURS OF INCUBATION. Resulted Labs and/or images reviewed: Labs reviewed by me, Image(s) reviewed by me Assessment/Plan Assessment/Plan The patient is a 79-year-old male with past medical history of CVA, DM, and hypertension who presented to [facility] ED with complaint of generalized weakness for proximally 2 weeks' duration. Patient was seen and evaluated in the ED, laboratory data shows elevated WBC 22.2, hemoglobin 9.6, hematocrit 28.6, platelets 309, sodium 139, potassium 5.3 trending down to 3.8, BUN 36, creatinine 1.52, glucose 186, lactic acid 1.0. Abdomen/pelvis CT revealing rectal wall thickening correlate for proctitis/neoplasm; mild wall thickening of the stomach and proximal duodenum which may be due to inadequate distension with gastro duodenitis not excluded; scattered colonic diverticulosis without diverticulitis. Patient was started on IV antibiotic regimen Flagyl, please see medication orders section in the computer. On my assessment, patient denies chest pain, no headache, no dizziness, no shortness of breaths, no nausea, no vomiting, no fever, no chills. Patient was admitted for further evaluation and medical management. (1) Generalized weakness (2) Proctitis (3) Leukocytosis, unspecified (4) Acute abdominal pain (5) Hyperkalemia (6) Acute renal injury (7) Adult failure to thrive 08/21/2024 continue with IV aBx for proctitis consult to Gen Surg for PEG tube removal 08/22/2024: PEG tube removal per GI. GI consulted. awaiting evaluation 08/23/24: GI plans for removal of PEG tube on Mon since pt does not need it anymore. Continue with tx of colitis. advance diet. Plan discussed with: Patient My Orders Orders - OZZY MILES DO Procedure Category Date Status Time * [facility] [employer] CONS 08/22/24 Transmitted 14:43 Date of Service: Aug 23, 2024 Billing Provider: OZZY MILES DO Common Visit Codes: [id number] INP/OBS CARE(HIGH) OZZY MILES DO Aug 23, 2024 13:08
--- NOTE | 2024-08-23 13:08 | DVHPN2 ---
Reviewed: Care Plan, H&P, Labs, Medications, Previous Orders, Radiology Changes from previous H/P or p: No Changes General: Per HPI Eyes: No Pain, No Vision change, No Conjunctivae inflammation, No Eyelid inflammation, No Other, No Redness ENT: No Ear pain, No Ear discharge, No Nose pain, No Nose discharge, No Nose congestion, No Mouth pain, No Mouth swelling, No Throat pain, No Throat swelling, No Other Cardiovascular: No Chest Pain, No Palpitations, No Orthopnea, No Paroxysmal Noc. Dyspnea, No Edema, No Lt Headedness, No Other Respiratory: No Cough, No Dry, No Shortness of breath, No SOB with excertion, No Wheezing, No Hemoptysis, No Pleuritic Pain, No Sputum, No Other Gastrointestinal: No Nausea, No Vomiting; Abdominal Pain; No Diarrhea, No Constipation, No Melena, No Hematochezia, No Other Genitourinary: No Dysuria, No Frequency, No Incontinence, No Hematuria, No Retention, No Other Musculoskeletal: No other, No neck pain, No shoulder pain, No arm pain, No back pain, No hand pain, No leg pain, No foot pain Skin: No Rash, No Lesions, No Jaundice, No Bruising, No Other Objective Vitals Vital Signs Date Time Temp Pulse Resp B/P (MAP) Pulse Ox O2 Delivery O2 Flow Rate FiO2 08/23/24 12:54 97.9 88 20 164/51 (88) 98 97.9 08/23/24 07:36 Room Air* 0 21 Intake/Output Intake and Output 08/23/24 07:00 Intake Total 1850 ml Output Total 1600 ml Balance 250 ml Intake Oral 1650 ml IV Total 200 ml Output Urine Total 1600 ml General Appearance: Alert, Oriented X3, Cooperative HEENT: Atraumatic Lungs: Clear to auscultation Cardiovascular: Regular rate, Normal S1, Normal S2 Abdomen: Normal bowel sounds Medications Current Medications Medications Dose Ordered Sig/Bryan Route Start Time Stop Time Status Last Admin Dose Admin Metronidazole 100 ml @ 100 mls/hr Q8HR@0000,0800,1600 IV 08/21/24 00:00 08/23/24 09:25 100 MLS/HR Aspirin 81 mg DAILY PO 08/21/24 10:00 08/23/24 09:25 81 MG Diagnostic Test (Pha) 1 strip ACHS 08/20/24 22:00 08/23/24 11:00 1 STRIP Insulin Human Regular HS SC 08/20/24 22:00 08/20/24 22:00 4 UNITS Insulin Human Regular AC SC 08/21/24 07:00 08/23/24 11:27 2 UNITS Dextrose 50 ml UD PRN IV 08/20/24 21:30 Sodium Chloride 1,000 ml @ 60 mls/hr [id number] IV 08/20/24 21:30 08/22/24 22:13 60 MLS/HR Acetaminophen/ Hydrocodone Bitart 1 tab Q4HP PRN PO 08/20/24 21:30 Ondansetron HCl 4 mg Q4HP PRN IV 08/20/24 21:30 Docusate Sodium 100 mg BIDPRN PRN PO 08/20/24 21:30 08/22/24 14:36 100 MG Acetaminophen 650 mg Q6HP PRN PO 08/20/24 21:30 Hydralazine HCl 10 mg Q6HP PRN IV 08/20/24 22:15 08/23/24 09:26 10 MG Nitroglycerin 0.4 mg Q5MINP PRN SL 08/20/24 23:30 Morphine Sulfate 2 mg Q30M PRN IV 08/20/24 23:30 Trazodone HCl 50 mg DAILY@2100 PO 08/22/24 21:00 08/22/24 21:22 50 MG Laboratory Results Laboratory Tests 08/21/24 06:33 Urinalysis Test 08/20/24 17:03 Urine Color Light-yellow (Yellow) Urine Clarity Clear (Clear) Urine pH 6.5 (5.0-9.0) Urine Specific [place] 1.007 (1.001-1.035) Urine Protein Negative (Negative) Urine Ketones Negative (Negative) Urine Blood Negative /uL (Negative) Urine Nitrite Negative (Negative) Urine Bilirubin Negative (Negative) Urine Urobilinogen Normal mg/dL (Negative) Urine Leukocyte Esterase Negative /uL (Negative) Urine RBC 1 /hpf (0 - 3) Urine WBC 2 /hpf (0 - 3) Urine Squamous Epithelial Cells None seen /hpf (<5) Urine Bacteria None seen /hpf (None Seen) Urine Glucose 1+ mg/dL (Normal) H Microbiology Microbiology Date/Time Source Procedure Growth Status 08/20/24 16:00 Blood Blood Culture - Preliminary NO GROWTH AFTER 48 HOURS OF INCUBATION. Resulted Labs and/or images reviewed: Labs reviewed by me, Image(s) reviewed by me Assessment/Plan Assessment/Plan The patient is a 79-year-old male with past medical history of CVA, DM, and hypertension who presented to [facility] ED with complaint of generalized weakness for proximally 2 weeks' duration. Patient was seen and evaluated in the ED, laboratory data shows elevated WBC 22.2, hemoglobin 9.6, hematocrit 28.6, platelets 309, sodium 139, potassium 5.3 trending down to 3.8, BUN 36, creatinine 1.52, glucose 186, lactic acid 1.0. Abdomen/pelvis CT revealing rectal wall thickening correlate for proctitis/neoplasm; mild wall thickening of the stomach and proximal duodenum which may be due to inadequate distension with gastro duodenitis not excluded; scattered colonic diverticulosis without diverticulitis. Patient was started on IV antibiotic regimen Flagyl, please see medication orders section in the computer. On my assessment, patient denies chest pain, no headache, no dizziness, no shortness of breaths, no nausea, no vomiting, no fever, no chills. Patient was admitted for further evaluation and medical management. (1) Generalized weakness (2) Proctitis (3) Leukocytosis, unspecified (4) Acute abdominal pain (5) Hyperkalemia (6) Acute renal injury (7) Adult failure to thrive 08/21/2024 continue with IV aBx for proctitis consult to Gen Surg for PEG tube removal 08/22/2024: PEG tube removal per GI. GI consulted. 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
[2024-08-24] VITALS (7 sets, daily range): BP systolic 123–151; BP diastolic 46–66; PULSE 86–100; RESP 16–19; TEMP 97.6–98.2; O2SAT 97–98
[2024-08-24 07:24] LABS: Basophils # (auto) 0 10 ^3/uL (0-0.2); Basophils % (auto) 0.6 % (0.0-2.0); Eosinophils # (auto) 0.1 10 ^3/uL (0-0.8); Eosinophils % (auto) 2.5 % (0.0-7.0); Hematocrit 27.7 % (41.0-53.0); Hemoglobin 9.8 g/dL (13.5-17.5); Lymphocytes # (auto) 1.4 10 ^3/uL (0.4-5.4); Lymphocytes % (auto) 25.4 % (10.0-50.0); Mean Corpuscular Hemoglobin 33.1 pg (28.0-32.0); Mean Corpuscular Hgb Conc. 35.2 g/dL (32.0-36.0); Mean Corpuscular Volume 94.1 fL (80.0-100.0); Monocytes # (auto) 0.6 10 ^3/uL (0-1.3); Monocytes % (auto) 10.3 % (0.0-12.0); Neutrophils # (auto) 3.4 10 ^3/uL (1.6-8.6); Neutrophils % (auto) 61.2 % (37.0-80.0); Nucleated Red Blood Cells % 0.1 %; Platelet Count (auto) 302 10^3/uL (140-450); Red Blood Cells 2.95 10^6/uL (4.5-5.90); Red Cell Distribution Width 13.5 % (11.8-14.3); White Blood Cell 5.6 10^3/uL (4.4-10.8)
[2024-08-24 07:41] LABS: Alanine Aminotransferase 74 U/L (7-40); Albumin 3.7 g/dL (3.2-4.8); Anion Gap 8 (5-15); Aspartate Aminotransferase 60 U/L (13-40); BUN/Creatinine Ratio 13.2 (10.0-20.0); Bilirubin, Total 0.6 mg/dL (0.2-1.0); Blood Urea Nitrogen 18 mg/dL (9-23); Calcium 9.1 mg/dL (8.7-10.4); Carbon Dioxide 23 mmol/L (20-31); Chloride 110 mmol/L (98-107); Glucose 95 mg/dL (74-106); Sodium 141 mmol/L (136-145); Total Protein 6.2 g/dL (5.7-8.2)
[2024-08-24 07:47] LABS: Alkaline Phosphatase 997 U/L (46-116)
[2024-08-24] MEDS ORDERED: DEXTROSE (50%) 50ML SYRG IV PRN (12:00)
[2024-08-24] MEDS: InsuLIN REG 1unit/0.01ml Soln (100units/ml) SC SCH (12:00)
--- NOTE | 2024-08-24 12:06 | DVHPN2 ---
Progress Note Date Seen: Aug 24, 2024 Medical Necessity Reason Pt with a Central, PICC or Fol: No Subjective Patient reports: No new complaints Review of Systems: HEENT:Normal, CVS:Normal, RESPIRATORY:Normal, GI:Normal, :Normal, MSK:Normal, NEURO:Normal Objective vital signs Vital Sign Date Time Temp Pulse Resp B/P (MAP) Pulse Ox O2 Delivery O2 Flow Rate FiO2 08/24/24 08:34 98.2 94 16 123/46 (71) 97 98.2 08/24/24 08:06 Room Air* 0 21 Total Intake and Output 08/23/24 08/23/24 08/24/24 15:00 23:00 07:00 Intake Total 100 ml 960 ml 280 ml Output Total 900 ml 400 ml Balance 100 ml 60 ml -120 ml medications Current Medications Medications Dose Ordered Sig/Bryan Route Start Time Stop Time Status Last Admin Dose Admin Metronidazole 100 ml @ 100 mls/hr Q8HR@0000,0800,1600 IV 08/21/24 00:00 08/24/24 06:37 100 MLS/HR Aspirin 81 mg DAILY PO 08/21/24 10:00 08/23/24 09:25 81 MG Diagnostic Test (Pha) 1 strip ACHS 08/20/24 22:00 08/24/24 06:34 1 STRIP Insulin Human Regular HS SC 08/20/24 22:00 08/20/24 22:00 4 UNITS Insulin Human Regular AC SC 08/21/24 07:00 08/23/24 16:32 9 UNITS Dextrose 50 ml UD PRN IV 08/20/24 21:30 Sodium Chloride 1,000 ml @ 60 mls/hr [id number] IV 08/20/24 21:30 08/24/24 06:39 60 MLS/HR Acetaminophen/ Hydrocodone Bitart 1 tab Q4HP PRN PO 08/20/24 21:30 Ondansetron HCl 4 mg Q4HP PRN IV 08/20/24 21:30 Docusate Sodium 100 mg BIDPRN PRN PO 08/20/24 21:30 08/23/24 22:35 100 MG Acetaminophen 650 mg Q6HP PRN PO 08/20/24 21:30 Hydralazine HCl 10 mg Q6HP PRN IV 08/20/24 22:15 08/23/24 16:31 10 MG Nitroglycerin 0.4 mg Q5MINP PRN SL 08/20/24 23:30 Morphine Sulfate 2 mg Q30M PRN IV 08/20/24 23:30 Trazodone HCl 50 mg DAILY@2100 PO 08/22/24 21:00 08/23/24 21:00 50 MG Examination: GENERAL:Normal, HEENT:Normal, NECK:Normal, LUNGS:Normal, CVS:Normal, ABDOMEN:Normal, ABDOMEN:Abnormal (peg+), MSK:Normal, SKIN:Normal, NEURO:Normal, :Normal laboratory and microbiology Laboratory Tests 08/24/24 05:45 Test 08/24/24 05:45 Range/Units Serum Glucose 95 74-106 mg/dL Microbiology Date/Time Source Procedure Growth Status 08/20/24 16:00 Blood Blood Culture - Preliminary NO GROWTH AFTER 72 HOURS OF INCUBATION. Resulted Problem List/Assessment/Plan Problem List/Assessment/Plan #1 sepsis with ? proctitis: iv antibiotics #2 dysphagia s/p peg placement: removal today, egd #3 dm: ssi #4 ?htn #5 acute renal failure ?vasomotor nephropathy: ivf #6 anemia advance care planning- full code- time spent 19 mins Plan discussed with: Patient My Orders My Orders Orders - SAUL BROOKS MD Procedure Category Date Status Time Glucose Blood PHA 08/24/24 Transmitted (Accu-Chek Comfort 12:00 Mild Sliding Scale PHA 08/24/24 Transmitted Npo - Q6hr 12:00 Dextrose 50% Syringe PHA 08/24/24 Transmitted 12:00 Levofloxacin Levaquin PHA 08/25/24 Transmitted 10:00 Levofloxacin Levaquin PHA 08/24/24 Transmitted 12:00 Basic Metabolic Panel LAB 08/25/24 Verified 06:00 Complete Blood Count LAB 08/25/24 Verified 06:00 Hemoglobin A1c LAB 08/25/24 Verified 06:00 Date of Service: Aug 24, 2024 Billing Provider: SALU BROOKS MD Common Visit Codes: [id number] INP/OBS CARE(HIGH) Secondary Visit Codes: [id number] CARE PLAN 30 MINUTES SAUL BROOKS MD Aug 24, 2024 12:05
[2024-08-24] MEDS: ACCU-CHEK COMFORT CURVE STRIP VI SCH (12:23)
[2024-08-24] MEDS: SODIUM CHLORIDE 0.9% 1,000 ML IV SCH (12:24)
[2024-08-24] MEDS ORDERED: GLYCOPYRROLATE 0.2 MG/ML 1ML VIAL ONE (13:30)
[2024-08-24] MEDS ORDERED: fentaNYL CITRATE 100 MCG/2 ML VL ONE (13:30)
[2024-08-24] MEDS ORDERED: MIDAZOLAM HCL 2MG/2ML 2ml VIAL (1mg/ml) ONE (13:30)
[2024-08-24] MEDS ORDERED: ONDANSETRON HCL 4 MG/2 ML VIAL ONE (13:30)
[2024-08-24] MEDS ORDERED: PROPOFOL 10 MG/ML 20 ML IV ONE (13:30)
[2024-08-24] MEDS ORDERED: ceFAZolin 1GM VL ONE (13:47)
--- NOTE | 2024-08-24 13:57 | DVHOP2 ---
Operative Report DATE OF OPERATION: 08/24/24 PROCEDURE: Upper Endoscopy with biopsy and removal of foreign body the gastrostomy tube. PREOPERATIVE INDICATION: The patient is a 79 -year-old male undergoing endoscopy for removal of PEG tube POSTOPERATIVE DIAGNOSES: 1. Mild candidal esophagitis more prominent in proximal esophagus from which biopsies were obtained 2. Mild gastritis involving the antrum and body of the stomach 3. Otherwise normal examination up to the 2nd and 3rd part of the duodenum 4. Percutaneous gastrostomy tube phalange was removed endoscopically per orally as per standard protocol under sterile conditions and the site was dressed with gauze and dry take PROCEDURE PERFORMED BY: Kassandra Hernandez GI NURSE: Violet SCOPE: Olympus videoendoscope. ASA CLASS: 3. PREOPERATIVE MEDICATIONS: Mac sedation, Dr. Medeiros, IV Ancef 1 g PROCEDURE IN DETAIL: After obtaining an informed consent, the patient was placed on left lateral decubitus position. The patient was then sedated with the above medications. A bite block was placed between his teeth. The endoscope was then passed through the oropharynx, into the esophagus, and through the stomach and pylorus up to the second and third part of the duodenum. The endoscope was then withdrawn. The 2nd and 3rd part of the duodenal and the duodenal bulb were normal. Duodenal biopsies were obtained. The pre-pyloric area antrum and body showed mild gastritis. Gastric biopsies were obtained. On retroflexion the fundus and cardia were normal. The endoscope was then withdrawn into the distal esophagus. Patient had a slightly irregular squamocolumnar junction and there was evidence of mild candidal esophagitis with some whitish plaques more prominent in the proximal esophagus. Esophageal biopsies were obtained. The endoscope was then passed back into the stomach and the stomach was inflated. The phalange of the previous gastrostomy tube was removed as per standard protocol by snaring it with a polypectomy snare and disconnecting from outside and it was removed per orally without any resistance The patient tolerated the procedure well without difficulty. COMPLICATIONS : None SPECIMENS: Duodenal biopsies Gastric biopsies Esophageal biopsies DISPOSITION: Transfer back to the floor Stable PLAN: 1. Await for biopsy result 2. Will place pt on Protonix 40 mg p.o. daily 3. Nystatin swish and swallow 5 mL p.o. three times a day 4. Resume soft mechanical diet 5. Get gallbladder ultrasound hepatitis profile to evaluate his elevated liver enzymes KASSANDRA HERNANDEZ MD Aug 24, 2024 13:57
[2024-08-24] MEDS ORDERED: levoFLOXacin 500MG 100 ML IV ONE (15:45)
[2024-08-24] MEDS: levoFLOXacin 500MG 100 ML IV ONE (15:50)
[2024-08-24] MEDS: NYSTATIN (MOUTH-THROAT) 500,000 UNITS/5 ML SUSP MT SCH (17:06)
--- NOTE | 2024-08-24 18:12 | DVH ---
INDICATION: elevated liver enzymes TECHNIQUE: Multiple real-time sonographic images were obtained of the right upper quadrant. COMPARISON: CT abdomen pelvis 08/20/2024 FINDINGS: The liver demonstrates homogenous echotexture without focal mass lesions. The liver measure s 12.5 cm. There is no intrahepatic ductal dilatation. The common duct is not visualized. The gallbladder is nonvisualized. The right kidney measures 9.1 cm. The right kidney is normal in contour, size, and shape. The echog enicity is normal. There is no hydronephrosis. The pancreas is not well visualized due to overlying bowel gas. IMPRESSION: 1. Nonvisualized gallbladder, surgically absent versus contracted. 2. Grossly normal sonographic appearance of the liver. HS:Y
[2024-08-25 05:00] VITALS: BP 137/50; PULSE 84; RESP 19; TEMP 98.5; O2SAT 96
[2024-08-25] MEDS: PANTOPRAZOLE 40 MG TAB PO SCH (05:39)
[2024-08-25 07:03] LABS: Basophils # (auto) 0 10 ^3/uL (0-0.2); Basophils % (auto) 0.5 % (0.0-2.0); Eosinophils # (auto) 0.2 10 ^3/uL (0-0.8); Eosinophils % (auto) 2.6 % (0.0-7.0); Hematocrit 26.5 % (41.0-53.0); Hemoglobin 9.1 g/dL (13.5-17.5); Lymphocytes # (auto) 1.6 10 ^3/uL (0.4-5.4); Lymphocytes % (auto) 25.8 % (10.0-50.0); Mean Corpuscular Hemoglobin 32.6 pg (28.0-32.0); Mean Corpuscular Hgb Conc. 34.4 g/dL (32.0-36.0); Mean Corpuscular Volume 94.8 fL (80.0-100.0); Monocytes # (auto) 0.6 10 ^3/uL (0-1.3); Monocytes % (auto) 9.9 % (0.0-12.0); Neutrophils # (auto) 3.7 10 ^3/uL (1.6-8.6); Neutrophils % (auto) 61.2 % (37.0-80.0); Platelet Count (auto) 300 10^3/uL (140-450); Red Cell Distribution Width 13.7 % (11.8-14.3); White Blood Cell 6.1 10^3/uL (4.4-10.8)
[2024-08-25 07:23] LABS: Alanine Aminotransferase 56 U/L (7-40); Alkaline Phosphatase 903 U/L (46-116); Anion Gap 7 (5-15); Aspartate Aminotransferase 45 U/L (13-40); BUN/Creatinine Ratio 14.5 (10.0-20.0); Blood Urea Nitrogen 18 mg/dL (9-23); Calcium 8.9 mg/dL (8.7-10.4); Carbon Dioxide 22 mmol/L (20-31); Chloride 110 mmol/L (98-107); Glucose 91 mg/dL (74-106); Potassium 4.1 mmol/L (3.5-5.1); Sodium 139 mmol/L (136-145)
[2024-08-25 07:24] LABS: Albumin 3.5 g/dL (3.2-4.8); Bilirubin, Total 0.5 mg/dL (0.2-1.0)
[2024-08-25 07:40] VITALS: PULSE 83
[2024-08-25 09:00] VITALS: BP 165/50; PULSE 83; RESP 18; TEMP 97.5; O2SAT 97
[2024-08-25] MEDS ORDERED: levoFLOXacin 500MG 100 ML IV SCH (10:00)
[2024-08-25] MEDS: levoFLOXacin 250MG 50 ML IV SCH (11:13)
[2024-08-25 13:00] VITALS: BP 172/52; PULSE 83; RESP 18; TEMP 97.5; O2SAT 98
[2024-08-25 13:35] VITALS: BP 159/56; PULSE 85
--- NOTE | 2024-08-25 14:39 | DVHDS2 ---
Discharge Summary Date of Admission Aug 20, 2024 at 23:29 Date of Discharge: Aug 25, 2024 Labs/Diagnostic Data: Laboratory Results Test 08/25/24 11:44 08/25/24 06:08 08/20/24 17:03 08/20/24 13:38 POC Glucose 275 mg/dl (70-106) White Blood Count 6.1 10^3/uL (4.4-10.8) Red Blood Count 2.80 10^6/uL (4.5-5.90) Hemoglobin 9.1 g/dL (13.5-17.5) Hematocrit 26.5 % (41.0-53.0) Mean Corpuscular Volume 94.8 fL (80.0-100.0) Mean Corpuscular Hemoglobin 32.6 pg (28.0-32.0) Mean Corpuscular Hemoglobin Concent 34.4 g/dL (32.0-36.0) Red Cell Distribution Width 13.7 % (11.8-14.3) Platelet Count 300 10^3/uL (140-450) Mean Platelet Volume 6.9 fL (6.9-10.8) Neutrophils (%) (Auto) 61.2 % (37.0-80.0) Lymphocytes (%) (Auto) 25.8 % (10.0-50.0) Monocytes (%) (Auto) 9.9 % (0.0-12.0) Eosinophils (%) (Auto) 2.6 % (0.0-7.0) Basophils (%) (Auto) 0.5 % (0.0-2.0) Neutrophils # (Auto) 3.7 10 ^3/uL (1.6-8.6) Lymphocytes # (Auto) 1.6 10 ^3/uL (0.4-5.4) Monocytes # (Auto) 0.6 10 ^3/uL (0-1.3) Eosinophils # (Auto) 0.2 10 ^3/uL (0-0.8) Basophils # (Auto) 0 10 ^3/uL (0-0.2) Nucleated Red Blood Cells 0.0 % Sodium Level 139 mmol/L (136-145) Potassium Level 4.1 mmol/L (3.5-5.1) Chloride Level 110 mmol/L (98-107) Carbon Dioxide Level 22 mmol/L (20-31) Anion Gap 7 (5-15) Blood Urea Nitrogen 18 mg/dL (9-23) Creatinine 1.24 mg/dL (0.700-1.30) Glomerular Filtration Rate Calc 59 mL/min (>90) BUN/Creatinine Ratio 14.5 (10.0-20.0) Serum Glucose 91 mg/dL (74-106) Hemoglobin A1c 7.6 % A1C (<5.7) Calcium Level 8.9 mg/dL (8.7-10.4) Total Bilirubin 0.5 mg/dL (0.2-1.0) Aspartate Amino Transferase (AST) 45 U/L (13-40) Alanine Aminotransferase (ALT) 56 U/L (7-40) Alkaline Phosphatase 903 U/L (46-116) Total Protein 6.0 g/dL (5.7-8.2) Albumin 3.5 g/dL (3.2-4.8) Urine Color Light-yellow (Yellow) Urine Clarity Clear (Clear) Urine pH 6.5 (5.0-9.0) Urine Specific [place] 1.007 (1.001-1.035) Urine Protein Negative (Negative) Urine Ketones Negative (Negative) Urine Blood Negative /uL (Negative) Urine Nitrite Negative (Negative) Urine Bilirubin Negative (Negative) Urine Urobilinogen Normal mg/dL (Negative) Urine Leukocyte Esterase Negative /uL (Negative) Urine RBC 1 /hpf (0 - 3) Urine WBC 2 /hpf (0 - 3) Urine Squamous Epithelial Cells None seen /hpf (<5) Urine Bacteria None seen /hpf (None Seen) Urine Glucose 1+ mg/dL (Normal) Lactic Acid Level 1.0 mmol/L (0.4-2.0) Other Laboratory Tests 08/25/24 06:08 Brief Hx & Hospital Course: SEE DICTATED NOTE Condition at Discharge: Fair Final Diagnosis/Problems List ABD PAIN Discharge Disposition: Home Discharge Instruct/Medications Diet: Regular Activity: No Restrictions, As Tolerated Follow Up/Referral: FU WITH [facility] Medications: RESUME HOME MEDS SCRIPT TO PHARMACY Discharge Statement: "Patient was advised to return to the ER or call 911 if any headaches, dizziness, shortness of breath, chest pain, abdominal pain, bleeding, fevers, or worsening of medical condition. Patient was counseled about treatment plan, medications, possible side effects, patientverbalized understanding. All questions were answered to the best of my ability. This discharge took greater then 30 minutes in planning, reviewing documentation, counseling the patient, and discussing with other team members." ASSESSMENT ASSESSMENT Assessment ABD PAIN Date of Service: Aug 25, 2024 Billing Provider: ASUL BROOKS MD Common Visit Codes: [id number]/OBS DISCH DAY >30min SAUL BROOKS MD Aug 25, 2024 14:39
[2024-08-25] MEDS ORDERED: LEVO500T91 PO (14:40)
[2024-08-25] MEDS ORDERED: MET500T PO (14:40)
[2024-08-25] MEDS ORDERED: PANT40TA2 PO (14:45)
[2024-08-25] MEDS ORDERED: NYS5LQ MT (14:45)
[2024-08-25] MEDS ORDERED: INFLUENZA TRIVALENT 2024-2025 0.5 ML INJ IM ONE (15:00)
[2024-08-25] MEDS: INFLUENZA TRIVALENT 2024-2025 0.5 ML INJ IM ONE (15:31)
--- NOTE | 2024-08-25 18:01 | DVHDS ---
DATE OF DISCHARGE: 08/25/2024 HISTORY OF PRESENT ILLNESS: The patient is a 79-year-old gentleman who was admitted with complaints of generalized weakness and abdominal discomfort. The patient has previous history of CVA, diabetes and hypertension as well as dysphagia. HOSPITAL COURSE: The patient had a CT of abdomen and pelvis that showed evidence of a possible proctitis along with diverticulosis and bilateral renal calculi with no obstructing calculus noted. The patient was seen in GI consult by Dr. Hernandez. The patient had endoscopy at which time the PEG tube was removed. The patient had mild Angelica esophagitis as well as mild gastritis in the antrum and body of the stomach. The patient had elevated liver function tests. His hepatitis panel is currently pending. The patient had a liver ultrasound that showed a surgical absent gallbladder with a grossly normal appearance of the liver. The patient has been asked to follow up with his liver tests when he goes to [facility]. The patient will now be discharged home to be on Levaquin 500 mg daily for 7 days, Flagyl 500 mg t.i.d. for 7 days, Protonix 40 mg daily and nystatin 5 mL swish and swallow q.i.d. for 7 days. The patient will follow up with his primary in [place]. FINAL DIAGNOSES: Therefore, * Abdominal sepsis with likely proctitis. * Dysphagia with Candidal esophagitis. * Status post PEG tube removal. * Diabetes mellitus. * Acute renal failure, questionable vasomotor nephropathy. * Transaminitis. * Anemia. * Questionable hypertension. Time spent in discharge planning and review of plan with the patient and [employer] sales consultant was 38 minutes. MD HEATHER Lyons/CAMERON TID: [id number] RECEIPT: [id number]
--- NOTE | 2024-08-25 19:42 | DVHPN2 ---
Progress Note Date Seen: Aug 25, 2024 Resident Creating Document: LALITHA ALDANA RESIDENT Medical Necessity Reason Pt with a Central, PICC or Fol: No Medical Necessity Reason abdominal pain. Now s/p PEG tube removal Subjective Review of Systems ROS: negative Objective vital signs Vital Sign Date Time Temp Pulse Resp B/P (MAP) Pulse Ox O2 Delivery O2 Flow Rate FiO2 08/25/24 13:35 85 159/56 (90) 08/25/24 13:00 97.5 18 98 97.5 08/25/24 07:40 Room Air* 0 21 Total Intake and Output 08/24/24 08/24/24 08/25/24 15:00 23:00 07:00 Intake Total 100 ml 875 ml 325 ml Output Total 400 ml 450 ml Balance 100 ml 475 ml -125 ml Examination GEN: Age-appropriate male in no acute distress. Alert. HEENT: Normocephalic atraumatic. Moist mucous membranes. Anicteric sclerae. CV: RRR Respiratory: Coarse breath sounds ABD: There is a no PEG tube. Removed. Insertion site is dry and clean. Abdomen is otherwise soft and nontender and nondistended. laboratory and microbiology Laboratory Tests 08/25/24 06:08 Test 08/25/24 06:08 Range/Units Serum Glucose 91 74-106 mg/dL Microbiology Date/Time Source Procedure Growth Status 08/20/24 16:00 Blood Blood Culture - Final NO GROWTH AFTER 5 DAYS OF INCUBATION. Complete Problem List/Assessment/Plan Problem List/Assessment/Plan 1.Patient is s/p upper Endoscopy with biopsy and removal of foreign body the gastrostomy tube. GT site is clean and dry. 2. Continue protonix 40 mg p.o. daily 3. Nystatin swish and swallow 5 mL p.o. three times a day for a week 4 Get gallbladder ultrasound hepatitis profile to evaluate his elevated liver enzymes 5. Discharge per primary team Plan discussed with: Patient LALITHA ALDANA RESIDENT Aug 25, 2024 19:42
[2024-08-27 15:22] LABS: Hepatitis A Total Antibody Positive (Negative); Hepatitis B Core Total AB Negative (Negative); Hepatitis B Surface Antibody Negative (Negative); Hepatitis B Surface Antigen Negative (Negative); Hepatitis C Antibody Negative (Negative)
== END 2024-08-25 16:43 | disposition home or self-care (01) | DRG 871 ==
LOC: ER 12:47 → TELE 23:29 → TELE-WESTW 08-21 01:16
PROVIDERS: ADMIT Nurse Practitioner Family; ATTEND Internal Medicine
PROC: 0DP68UZ Removal of Feeding Device from Stomach, Via Natural or Artificial Opening Endoscopic (ICD-10-PCS; 2024-08-24)
PROC: 0DB68ZX Excision of Stomach, Via Natural or Artificial Opening Endoscopic, Diagnostic (ICD-10-PCS; 2024-08-24)
PROC: 0DB58ZX Excision of Esophagus, Via Natural or Artificial Opening Endoscopic, Diagnostic (ICD-10-PCS; 2024-08-24)
PROC: 0DB98ZX Excision of Duodenum, Via Natural or Artificial Opening Endoscopic, Diagnostic (ICD-10-PCS; principal; 2024-08-24 13:35)
DX: A41.9 Sepsis, unspecified organism (principal); N17.0 Acute kidney failure with tubular necrosis; B37.81 Candidal esophagitis; Z68.1 Body mass index [BMI] 19.9 or less, adult; Z43.1 Encounter for attention to gastrostomy; N13.2 Hydronephrosis with renal and ureteral calculous obstruction; E11.9 Type 2 diabetes mellitus without complications; K57.30 Diverticulosis of large intestine without perforation or abscess without bleeding; E87.5 Hyperkalemia; I10 Essential (primary) hypertension; K52.9 Noninfective gastroenteritis and colitis, unspecified; R62.7 Adult failure to thrive; R79.89 Other specified abnormal findings of blood chemistry; D64.9 Anemia, unspecified; R74.01 Elevation of levels of liver transaminase levels; K29.70 Gastritis, unspecified, without bleeding; K62.89 Other specified diseases of anus and rectum; Z88.8 Allergy status to other drugs, medicaments and biological substances; Z86.73 Personal history of transient ischemic attack (TIA), and cerebral infarction without residual deficits; Z83.3 Family history of diabetes mellitus; Z79.899 Other long term (current) drug therapy
CPT/HCPCS: 36415; 71045; 74176; 76705; 80048; 80053; 81001; 82962; 83036; 83605; 84132; 85025; 86704; 86706; 86708; 86803; 87040; 87340; 90656; 94640; 99291; G0378; J0690; J1815; J1956; J2250; J2405; J2543; J2704; J3490